=== PATIENT | male | born 1985 | race African-American/Black ===

== ENCOUNTER 2020-02-16 09:11 | Emergency (ER) | payer OTHER ==
[~2020-02-16] VITALS: Ht 172.7 cm; Wt 73.0 kg
[2020-02-16] MEDS ORDERED: PREDNISONE 20MG TABLET PO STA (09:44)
[2020-02-16] MEDS ORDERED: IPRATROPIUM BROMIDE (0.02%) 0.5MG/2.5ML NEB HHN STA (09:44)
[2020-02-16] MEDS ORDERED: ALBUTEROL (0.083%) 2.5MG/3ML NEB HHN STA (09:44)
[2020-02-16 11:11] VITALS: BP 120/81
== END 2020-02-16 11:14 | disposition home or self-care (01) ==
LOC: ER 09:11
DX: J45.901 Unspecified asthma with (acute) exacerbation (principal); Z88.0 Allergy status to penicillin
CPT/HCPCS: 99283; J7512; Z7610